=== PATIENT | female | born 1945 | race Caucasian/White ===

== ENCOUNTER → 2017-02-25 | Outpatient (CLI) | payer OTHER | LOC: BMCIMAGING 08:32 | PROVIDERS: ATTEND Nurse Practitioner Adult Health | DX: I65.23 Occlusion and stenosis of bilateral carotid arteries (principal); I10 Essential (primary) hypertension; Z87.891 Personal history of nicotine dependence ==

== ENCOUNTER 2017-03-08 06:21 | Observation (INO) | payer OTHER ==
[2017-03-08] MEDS ORDERED: DIAZEPAM 5 MG TAB PO ONE (06:26)
[2017-03-08] MEDS ORDERED: FAMOTIDINE 20 MG TAB PO ONE (06:26)
[2017-03-08] MEDS ORDERED: diphenhydrAMINE 25 MG CAP PO ONE ×2 (06:26→06:49)
[2017-03-08] MEDS ORDERED: ASPIRIN EC 325 MG TAB PO ONE (06:26)
[2017-03-08] MEDS ORDERED: NS 1,000 ML IV ONE (06:26)
--- NOTE | 2017-03-08 06:44 | CPEKG ---
Heart Rate: 53 RR Interval: 1132 P-R Interval: 212 QRSD Interval: 84 QT Interval: 464 QTC Interval: 436 P [place]: 104 QRS [place]: 42 T Wave [place]: 48 EKG Severity - ABNORMAL ECG - EKG Impression: SINUS RHYTHM EKG Impression: NONSPECIFIC T ABNORMALITIES, ANTERIOR LEADS Electronically Signed By: Uday Cain 08-Mar-2017 08:00:45
[2017-03-08] MEDS ORDERED: FAMOTIDINE 20 MG TAB ONE (06:49)
[2017-03-08] MEDS ORDERED: DIAZEPAM 5 MG TAB ONE (06:49)
[2017-03-08] MEDS ORDERED: ASPIRIN EC 81 MG TAB PO ONE (06:50)
[2017-03-08 06:57] LABS: % IMMATURE GRANULYOCYTES 0.3 % (0.0-1.1); ABSOLUTE IMMATURE GRANULOCYTES 0.02 10^3/uL (0.00-0.10); ADD DIFF? NO; ADD MORPH? NO; ADD SCAN? NO; ATYPICAL LYMPHOCYTE FLAG 0 (0-99); FRAGMENT RBC FLAG 0 (0-99); HEMATOCRIT 41.8 % (38.0-47.0); LEFT SHIFT FLG 0 (0-99); LIPEMIA HEMOLYSIS FLAG 80 (0-99); MEAN CELL HEMOGLOBIN 30.9 pg (27.9-34.1); MEAN CELL HEMOGLOBIN CONCENTR. 33.5 g/dL (32.4-36.7); MEAN CELL VOLUME 92.3 fL (81.5-99.8); MEAN PLATELET VOLUME 9.2 fL (8.7-11.7); PLATELET CLUMPS FLAG 20 (0-99); PLATELET COUNT 343 10^3/uL (150-400); RED BLOOD CELL COUNT 4.53 10^6/uL (4.18-5.33); RED CELL DISTRIBUTION WIDTH 14.1 % (11.5-15.2)
[2017-03-08 07:15] LABS: INR 0.99 (0.83-1.16)
[2017-03-08 07:20] LABS: ANION GAP 9 mEq/L (8-16); CARBON DIOXIDE 29 mEq/l (22-31); CHLORIDE 101 mEq/L (97-110); CHOLESTEROL 225 mg/dL (140-220); CHOLESTEROL/HDL RATIO 4.69 RATIO (1.00-4.44); CREATININE 0.6 mg/dL (0.6-1.0); GLOMERULAR FILTRATION RATE > 60; GLUCOSE 92 mg/dL (70-100); HIGH DENSITY LIPOPROTEIN 48 mg/dL (40-85); LDL/HDL RATIO 3.21 RATIO (1.00-3.22); LOW DENSITY LIPOPROTEIN 154 mg/dL (80-100); NON-HIGH DENSITY LIPOPROTEIN 177 mg/dL (90-129); POTASSIUM 3.9 mEq/L (3.5-5.2); SODIUM 139 mEq/L (134-144); TRIGLYCERIDE 115 mg/dL (35-135); VERY LOW DENSITY LIPOPROTEINS 23 mg/dL (8-25)
[2017-03-08] MEDS ORDERED: fentaNYL 100 MCG/2 ML INJ ONE (07:39)
[2017-03-08] MEDS ORDERED: LIDOCAINE 1% 300 MG/30 ML SDV ONE (07:39)
[2017-03-08] MEDS ORDERED: MIDAZOLAM 2 MG/2 ML VIAL ONE (07:40)
[2017-03-08] MEDS ORDERED: IOPAMIDOL (ISOVUE-370) 150 ML BTL IV ONE (07:40)
[2017-03-08] MEDS ORDERED: HEPARIN 10,000 UNIT/10 ML MDV ONE (07:40)
[2017-03-08] MEDS ORDERED: VERAPAMIL 5 MG/2 ML VIAL ONE (07:40)
[2017-03-08] MEDS ORDERED: ATROPINE SULFATE 1 MG/10 ML SYR ONE (09:06)
[2017-03-08] MEDS ORDERED: ATROPINE SULFATE 1 MG/10 ML SYR IVP PRN (09:10)
[2017-03-08] MEDS ORDERED: NITROGLYCERIN 0.4 MG BTL SL PRN (09:10)
[2017-03-08] MEDS ORDERED: ONDANSETRON 4 MG/2 ML VIAL IVP PRN (09:10)
--- NOTE | 2017-03-08 09:14 | PDDXCAT ---
Diagnostic Cath Note - . Date: 03/08/17 Orthotic Finish Grinding Technician: Avery Indication: High-risk criteria on noninvasive testing (choose option below) High-risk criteria on non-invasive testing: large, fixed perfusion defect w LV dilatation or increased lung uptake - Procedure Access: right groin Procedure: left heart catheterization, coronary angiography - Materials Left Heart Cath size: 6F Left Heart Cath materials: standard multipack (JL4, JR4, pigtail) - Findings-Left Heart Catheterization LM: Unobstructed LAD: 100% occluded after small diagonal LCX: 75-80% stenosis of the proximal circumflex RCA: Dominant vessel providing right to left collaterals of the LAD with diffuse 75% stenosis EDP: 15 mm of mercury LVEF: 65% Wall motion: Normal Complications: None Estimated blood loss: <50ml Closure method: Angioseal Assessment: 1. Severe [place] three-vessel coronary artery disease with 100% occlusion of the left anterior descending coronary artery. 2. Left ventricular systolic function is normal with normal filling pressures. Plan: Options include coronary artery bypass grafting versus PCI and stenting of the proximal circumflex and right coronary artery guided by FFR. Discussed with Dr. Kennedy. Will plan for cardiothoracic surgery consultation. Patient Problems: Problems Problem Status Onset Coronary arteriosclerosis Acute
[2017-03-08] MEDS ORDERED: LORazepam 2 MG/ML INJ IVP PRN (13:30)
[2017-03-08] MEDS ORDERED: TEMAZEPAM 15 MG CAP PO PRN (13:30)
[2017-03-08] MEDS ORDERED: PRASUGREL HCL 10 MG TAB PO ONE (13:30)
[2017-03-08] MEDS ORDERED: PRASUGREL HCL 10 MG TAB ONE (13:34)
--- NOTE | 2017-03-08 13:36 | PDCTREPORT ---
Cardiothoracic Procedure Rpt Cardiothoracic Procedure Report: Procedure: Direct stenting of the proximal circumflex artery. Direct stenting of the right coronary artery. Indications: Highly abnormal nuclear stress test in the setting of need for bilateral endarterectomy with occluded LAD fed by collaterals from the right and circumflex. Surgical consultation was obtained. Patient was turned down for 3 vessel coronary artery bypass grafting at this time. Will plan for PCI and stenting of the circumflex and right coronary artery to allow for safe carotid endarterectomy surgery for bilateral 99% stenoses. After reviewing diagnostic angiograms elected to proceed with PCI. Patient was anticoagulated with Angiomax. 7 [place] sheath was inserted in the left femoral artery. Using a 0.01 far luge wire the circumflex artery was entered. The proximal vessel was stented with a 2.75 by 16 mm synergy. Repeat orthogonal angiograms revealed worsening of the proximal stenosis. A 2.75 x 8 mm stent was placed proximally. It was post dilated with a 3 mm balloon. Our attention then was turned to the right coronary artery. Using a 7 [place] JR4 catheter the right coronary selectively intubated. 0.014 luge wire was placed distally. 4.0 x 38 mm synergy stent was placed distally. It was deployed using a single inflation. A 2nd 4.0 x 32 mm was overlapped and brought to the proximal segment and deployed using a single inflation. In the posterolateral branch 90 % stenosis was noted. 2.5 x 12 mm synergy stent was placed in the posterolateral branch and deployed using a single inflation. The right coronary stents were post dilated with a 4 mm noncompliant balloon. Repeat angiogram showed NORMA grade 3 flow. Final diagnosis: Successful revascularization with PCI stenting of the proximal circ and right coronary artery. Patient be continued on dual antiplatelet therapy for 30 days. That point patient be considered for endarterectomy under the care of Dr. Kennedy. Case was discussed with Dr. Garcia and Dr. Kennedy both before and after PCI. Patient Problems: Problems Problem Status Onset Coronary arteriosclerosis Acute
--- NOTE | 2017-03-08 14:07 | CPEKG ---
Heart Rate: 44 RR Interval: 1364 P-R Interval: 128 QRSD Interval: 74 QT Interval: 488 QTC Interval: 418 P [place]: 78 QRS [place]: 45 T Wave [place]: 54 EKG Severity - BORDERLINE ECG - EKG Impression: SINUS BRADYCARDIA EKG Impression: BORDERLINE T ABNORMALITIES, ANTERIOR LEADS Electronically Signed By: Uday Cain 08-Mar-2017 14:18:21
[2017-03-08] MEDS ORDERED: NICOTINE LOZENGE SL PRN ×2 (16:13→16:15)
[2017-03-09 04:38] LABS: % IMMATURE GRANULYOCYTES 0.4 % (0.0-1.1); ABSOLUTE IMMATURE GRANULOCYTES 0.04 10^3/uL (0.00-0.10); ADD DIFF? NO; ADD MORPH? NO; ADD SCAN? NO; ATYPICAL LYMPHOCYTE FLAG 0 (0-99); FRAGMENT RBC FLAG 0 (0-99); HEMATOCRIT 35.5 % (38.0-47.0); HEMOGLOBIN 12.1 g/dL (12.6-16.3); LEFT SHIFT FLG 0 (0-99); LIPEMIA HEMOLYSIS FLAG 90 (0-99); MEAN CELL HEMOGLOBIN 30.9 pg (27.9-34.1); MEAN CELL HEMOGLOBIN CONCENTR. 34.1 g/dL (32.4-36.7); MEAN CELL VOLUME 90.8 fL (81.5-99.8); MEAN PLATELET VOLUME 9.9 fL (8.7-11.7); PLATELET CLUMPS FLAG 0 (0-99); PLATELET COUNT 297 10^3/uL (150-400); RED BLOOD CELL COUNT 3.91 10^6/uL (4.18-5.33); RED CELL DISTRIBUTION WIDTH 14.1 % (11.5-15.2)
[2017-03-09 04:45] LABS: ALBUMIN 3.6 g/dL (3.5-5.0); ANION GAP 8 mEq/L (8-16); ASPARTATE AMINOTRANSFERASE 19 IU/L (14-46); BILIRUBIN,TOTAL 0.5 mg/dL (0.1-1.4); CALCIUM 9.2 mg/dL (8.5-10.4); CARBON DIOXIDE 24 mEq/l (22-31); CHLORIDE 106 mEq/L (97-110); CREATININE 0.6 mg/dL (0.6-1.0); GLOMERULAR FILTRATION RATE > 60; GLUCOSE 81 mg/dL (70-100); LACTATE DEHYDROGENASE 445 IU/L (313-618); MAGNESIUM 1.8 mg/dL (1.6-2.3); POTASSIUM 3.8 mEq/L (3.5-5.2); SODIUM 138 mEq/L (134-144)
--- NOTE | 2017-03-09 06:11 | CPEKG ---
Heart Rate: 75 RR Interval: 800 P-R Interval: 176 QRSD Interval: 78 QT Interval: 408 QTC Interval: 456 P [place]: 88 QRS [place]: 69 T Wave [place]: 75 EKG Severity - ABNORMAL ECG - EKG Impression: SINUS RHYTHM EKG Impression: NONSPECIFIC T ABNORMALITIES, ANTERIOR LEADS Electronically Signed By: Uday Cain 09-Mar-2017 08:59:03
[2017-03-09] MEDS ORDERED: PRASUGREL HCL 10 MG TAB PO SCH (09:00)
[2017-03-09] MEDS ORDERED: ASPIRIN EC 325 MG TAB PO SCH (09:00)
[2017-03-09] MEDS ORDERED: METOPROLOL SUCCINATE XR 100 MG TAB PO SCH (10:00)
[2017-03-09 10:50] VITALS: BP 101/50; PULSE 69; RESP 20; TEMP 98; O2SAT 96
--- NOTE | 2017-03-09 14:15 | GDS ---
[f rep st] DISCHARGE SUMMARY ADMISSION DIAGNOSES: 1. Abnormal nuclear study. 2. Paroxysmal atrial fibrillation. 3. Hyperlipidemia. 4. Bilateral carotid artery disease. 5. Essential hypertension. DISCHARGE DIAGNOSES: 1. Coronary artery disease, status post percutaneous coronary intervention of circumflex and right coronary artery and posterior lateral artery, with AARON implantation. 2. Paroxysmal atrial fibrillation. 3. Hyperlipidemia. 4. Bilateral carotid artery disease. 5. Essential hypertension. PROCEDURES: Done during hospitalization: 1. Electrocardiogram. 2. Diagnostic heart catheterization, left heart catheterization. 3. Percutaneous coronary intervention of the circumflex with a 2.75 x 16, and a 2.75 x 8 Synergy AARON implantation. 4. Percutaneous coronary intervention of the RCA with a 4.0 x 38, and a 4.0 x 32 Synergy AARON implantation. 5. Percutaneous coronary intervention of the posterior lateral artery with a 2.5 x 12 Synergy AARON implantation. BRIEF HISTORY: Please see history and physical. The patient is a 72-year-old female. Her primary enterprise systems engineer is Dr. Kennedy. She had been seen by him in preparation for known severe bilateral carotid artery disease, with a plan for carotid endarterectomy. As part of her cardiac workup she did undergo stress testing on March 06, 2017, which showed positive ECG changes with 2.[address]-segment depression, and that persisted throughout the recovery phase. MPI study did show a moderate size area of ischemia in the anterior and anterior septal brannon. At that time it was felt that she should be further evaluated for cardiac ischemia before undergoing surgery, and was scheduled for a diagnostic heart catheterization. Patient was admitted through the CVC, prepped for procedure, and taken to the cardiac catheterization lab. There, Dr. Varela performed a diagnostic left heart catheterization with axis point of the right groin. It was found that her left main was unobstructed, her LAD was 100% occluded after a small diagonal branch. Her circumflex had a 75% to 80% stenosis in the proximal circ, her RCA was a dominant vessel,right to left collateralization to the LAD with diffuse 75% stenosis. Her ejection fraction was estimated at 65%, EDP was 15 mmHg, and she had normal wall motion. At that point she was taken off the table. Dr. Varela discussed the findings with her primary enterprise systems engineer, Dr. Kennedy, and Dr. Garcia of cardiovascular surgery. She was felt to be a poor candidate for surgery. She was taken back to the cardiac catheterization, and at this time a left femoral artery access approach was done, where Dr. Varela successfully stented the circumflex with a 2.75 x 16 and a 2.75 x 8 Synergy AARON stent. At that point he transitioned over to intervention on the right RCA and ELVIA, in which he implanted a 4.0 x 38 distal and 4.0 x 32 proximal Synergy AARON in the main right coronary artery, and then he PCI'd with AARON implantation into the ELVIA with a 2.5 x 12 Synergy stent. No complications. The patient was taken back to the CVC, and ultimately to the telemetry floor for overnight observation. During the night the patient has been noted on continuous cardiac monitoring to be sinus rhythm, sinus alejandro, no malignant arrhythmias or pauses noted. Patient reports no chest pain or shortness of breath. Vital signs remained stable. PHYSICAL EXAMINATION: GENERAL APPEARANCE: A thin, elderly-looking female. She is alert and oriented to person, place, time, and situation, appears to be under no acute distress. VITAL SIGNS: Current vital signs are a blood pressure of 101/50, heart rate is 69 and sinus rhythm on the monitor, respirations are 20, saturating 96% on room air, temperature of 36.7 degrees Celsius. HEENT: Head is normocephalic. Lips and tongue are pink and moist with no signs of cyanosis. Conjunctivae pink. NECK: Trachea is midline, carotid bruits noted bilaterally. No JVD. RESPIRATORY: Lungs are clear but diminished in bases bilateral. No rhonchi, rales or wheezes. No accessory muscle use, no intercostal muscle retractions noted. CARDIAC: Regular rate, regular rhythm, S1 and S2, a 1/6 to 2/6 systolic murmur noted along the left sternal border. No rubs or gallops are noted. ABDOMEN: Soft, nontender, bowel sounds x4 quadrants, no organomegaly. No palpable masses. SKIN: [place], warm, dry, no cyanosis, no clubbing, no peripheral edema. VASCULAR: With +1 radial bilateral, +1 posterior tibial pulses bilateral. Groin sites, catheter insertion sites bilateral, each site with no redness, swelling, drainage, ecchymosis, or hematoma. No auscultated bruit noted over either site. LABORATORY STUDIES: Laboratory studies drawn today show a WBC of 10.50, hemoglobin of 12.1, hematocrit of 35.5, platelet count of 297. On admission INR was 0.99. Sodium today was 138, potassium 3.8, chloride 106, CO2 of 24, BUN 12, creatinine 0.6, glucose 81, calcium 9.2, phosphorus 3.5, magnesium 1.8, total bilirubin 0.5, AST 19, albumin 3.6. STUDIES: Diagnostic heart catheterization as mentioned above. Interventional heart catheterization as mentioned above. A.M. electrocardiogram shows sinus rhythm, with nonspecific T-wave abnormalities in anterior leads. DISCHARGE DISPOSITION: Patient will be discharged home in stable condition. She is under activity restrictions of not lifting more than 10 pounds for the next week, and no strenuous activity for the next 2 weeks. DISCHARGE MEDICATIONS: Please see discharge medication reconciliation sheet. Note that patient has been started on dual anti-platelet therapy of aspirin at 325 mg p.o. daily, and Effient 10 mg p.o. daily. She has been resumed on her home dose of pravastatin. DISCHARGE INSTRUCTIONS: Post percutaneous coronary intervention discharge instructions went over with the patient, including monitoring for signs of infection, bleeding precautions, activity restrictions, and the importance of medication compliance, especially dual anti-platelet therapy with recent 5 stent implantation. The patient verbalizes understanding. Dr. Kennedy's office will call the patient on Saturday, to be scheduled for a followup visit. Plan is patient will need to be on dual anti-platelet therapies in 30 days recovery before undergoing carotid endarterectomy, potentially longer. As for her history of paroxysmal atrial fibrillation, she has had no arrhythmias run in the hospital, she has been started on dual anti-platelet therapy, we will let Dr. Kennedy's office start full anticoagulation as an outpatient. At the time of discharge patient verbalizes understanding of all instructions, and has no questions or concerns. She has been told that if any problems or concerns post discharge she is to either notify our office, notify Dr. Kennedy's office, or return to the hospital. Total time spent on discharge greater than 30 minutes. /[id number]/MODL MTDD
[2017-03-09] MEDS ORDERED: PRAVASTATIN SODIUM 10 MG TAB PO SCH (21:00)
== END 2017-03-09 13:49 | disposition home or self-care (01) ==
LOC: FCATH 06:21 → F2W 12:44
PROVIDERS: ADMIT Internal Medicine Interventional Cardiology; ATTEND Internal Medicine Interventional Cardiology
PROC: B2111ZZ Fluoroscopy of Multiple Coronary Arteries using Low Osmolar Contrast (ICD-10-PCS; principal; 2017-03-08)
PROC: B2151ZZ Fluoroscopy of Left Heart using Low Osmolar Contrast (ICD-10-PCS; principal; 2017-03-08)
PROC: 4A023N7 Measurement of Cardiac Sampling and Pressure, Left Heart, Percutaneous Approach (ICD-10-PCS; principal; 2017-03-08)
PROC: 027235Z Dilation of Coronary Artery, Three Arteries with Two Drug-eluting Intraluminal Devices, Percutaneous Approach (ICD-10-PCS; principal; 2017-03-08)
DX: R94.39 Abnormal result of other cardiovascular function study (principal); I25.10 Atherosclerotic heart disease of native coronary artery without angina pectoris; I65.23 Occlusion and stenosis of bilateral carotid arteries; I25.82 Chronic total occlusion of coronary artery; I48.0 Paroxysmal atrial fibrillation; E78.5 Hyperlipidemia, unspecified; I10 Essential (primary) hypertension; G47.33 Obstructive sleep apnea (adult) (pediatric); J44.9 Chronic obstructive pulmonary disease, unspecified; E55.9 Vitamin D deficiency, unspecified; F17.210 Nicotine dependence, cigarettes, uncomplicated; Z85.3 Personal history of malignant neoplasm of breast; Z96.651 Presence of right artificial knee joint; Z90.13 Acquired absence of bilateral breasts and nipples
CPT/HCPCS: 93005; 93458; C1725; C1760; C1769; C1874; C1887; C9600; J0461; J1644; J2250; J3010; Q9967

== ENCOUNTER → 2017-03-08 | Outpatient (CLI) | payer OTHER ==
[~2017-03-08] MED LIST: BIVALIRUDIN 250 MG/5 ML VIAL IV ONE; IOPAMIDOL (ISOVUE-370) 150 ML BTL IV ONE; LIDOCAINE 1% 300 MG/30 ML SDV ONE; MIDAZOLAM 2 MG/2 ML VIAL ONE; NITROGLYCERIN 1,500 MCG/15 ML VIAL MISC ONE; fentaNYL 100 MCG/2 ML INJ ONE
== END ==
LOC: FIMAGING 10:15
PROVIDERS: ATTEND Surgery
DX: I65.29 Occlusion and stenosis of unspecified carotid artery (principal); Z53.9 Procedure and treatment not carried out, unspecified reason
CPT/HCPCS: J0583; J1644; J2250; J3010; Q9967

== ENCOUNTER → 2017-03-29 | Outpatient (CLI) | payer OTHER | LOC: FIMAGING 09:48 | PROVIDERS: ATTEND Surgery | DX: I65.23 Occlusion and stenosis of bilateral carotid arteries (principal); I25.10 Atherosclerotic heart disease of native coronary artery without angina pectoris ==

== ENCOUNTER 2017-06-11 09:56 | Inpatient (IN) | payer OTHER ==
--- NOTE | 2017-06-11 09:50 | PDHPUP ---
History & Physical Update H&P update statement: This history and physical update is based on an assessment of the patient which was completed after admission or registration (within 24 hours), but prior to the surgery/procedure. H&P update: H&P reviewed & patient examined, no change in patient's condition since H&P completed
[2017-06-11] MEDS ORDERED: BUPIVACAINE/EPI 0.5% 30 ML SDV ONE (10:46)
[2017-06-11] MEDS ORDERED: THROMBIN (BOVINE) 5,000 UNIT VIAL TP ONE (10:47)
[2017-06-11] MEDS ORDERED: LIDOCAINE 1% 2 ML INJ ONE (11:13)
--- NOTE | 2017-06-11 11:18 | PDANEPAE ---
ANE History of Present Illness here for R CEA ANE Past Medical History - Cardiovascular History Hx Hypertension: Yes Hx Arrhythmias: Yes Hx Chest Pain: No Hx Coronary Artery / Peripheral Vascular Disease: Yes Hx CHF / Valvular Disease: No Hx Palpitations: No Cardiovascular History Comment: A-FIB - Pulmonary History Hx COPD: No Hx Asthma/Reactive Airway Disease: No Hx Recent Upper Respiratory Infection: No Hx Oxygen in Use at Home: No Hx Sleep Apnea: Yes Sleep Apnea Screening Result - Last Documented: Positive Pulmonary History Comment: [facility]DRO HAS C-PAP. INSTRUCTED TO BRING DOS - Neurologic History Hx Cerebrovascular Accident: No Hx Seizures: No Hx Dementia: No - Endocrine History Hx Diabetes: No Obesity: no - Renal History Hx Renal Disorders: No - Liver History Hx Hepatic Disorders: No - Neurological & Psychiatric Hx Hx Neurological and Psychiatric Disorders: No - Cancer History Hx Cancer: Yes Cancer History Comment: BREAST - GI History GERD: mild Hx Gastrointestinal Disorders: No - Chronic Pain History Chronic Pain: No - Surgical History Prior Surgeries: STENTS X5 03/2017. RT TOTAL KNEE 2007. YANE CATARACTS. YANE MASTECTOMY. REMVL OVARY ANE Review of Systems Review of systems is: negative - Exercise capacity Exercise capacity: >=4 METS METS (RN): 4 METS ANE Patient History - Allergies Allergies/Adverse Reactions: Sulfa (Sulfonamide Antibiotics) Allergy (Verified 03/08/17 12:46) - Home Medications Home medications: home medication list seen and reviewed Home Medications: C/E/Zn/Cu/OM3/DHA/EPA/LUT/ZEAX [Preservision Areds 2 Softgel] 1 each PO DAILY [Last Taken 03/08/17] Hydrochlorothiazide [HCTZ (*)] 12.5 mg PO DAILY 03/08/17 [Last Taken 03/07/17] Metoprolol Succinate Xr [Toprol Xl 100 mg (*)] 100 mg PO DAILY 03/08/17 [Last Taken 03/08/17] Pravastatin Sodium [Pravachol] 10 mg PO HS 03/08/17 [Last Taken 03/07/17] Aspirin EC [Aspirin EC 81 mg (*)] 81 mg PO DAILY 05/20/17 [Last Taken Unknown] - NPO status NPO Status: no food or drink >8 hours - Anes Hx Anes Hx: no prior problems - Smoking Hx Smoking Status: Former smoker ANE Labs/Vital Signs - Vital Signs Height: 160.02 cm Weight: 54.431 kg ANE Physical Exam - Airway Neck exam: FROM Mallampati Score: Class 1 Mouth exam: normal dental/mouth exam - Pulmonary Pulmonary: no respiratory distress - Cardiovascular Cardiovascular: regular rate and rhythym - ASA Status ASA Status: III ANE Anesthesia Plan Anesthesia Plan: general endotracheal anesthesia Lines/Monitors: arterial line
[2017-06-11] MEDS ORDERED: MIDAZOLAM 2 MG/2 ML VIAL ONE (11:25)
[2017-06-11] MEDS ORDERED: PROPOFOL/EMULSION 500 MG/50 ML BOTTLE IV ONE (11:32)
[2017-06-11] MEDS ORDERED: ROCURONIUM 100 MG/10 ML VIAL ONE (11:39)
[2017-06-11] MEDS ORDERED: fentaNYL 100 MCG/2 ML INJ ONE (11:42)
[2017-06-11] MEDS ORDERED: HYDROmorphONE/DILAUDID 1 MG/ML SYR IVP PRN ×2 (13:02→13:48)
[2017-06-11] MEDS ORDERED: NALOXONE HCL 0.4 MG/ML INJ IVP PRN (13:02)
[2017-06-11] MEDS ORDERED: ONDANSETRON 4 MG/2 ML VIAL IVP PRN ×2 (13:02→13:48)
[2017-06-11] MEDS ORDERED: ALBUTEROL 3 ML DEYVIAL IH PRN (13:02)
[2017-06-11] MEDS ORDERED: PROMETHAZINE HCL 25 MG/ML INJ IVP PRN (13:02)
[2017-06-11] MEDS ORDERED: fentaNYL 100 MCG/2 ML INJ IVP PRN (13:02)
[2017-06-11] MEDS ORDERED: LABETALOL HCL 50 MG/10 ML SYR IVP PRN (13:02)
[2017-06-11] MEDS ORDERED: DEXAMETHASONE 4 MG/ML VIAL IVP PRN (13:02)
[2017-06-11] MEDS ORDERED: MIDAZOLAM 2 MG/2 ML VIAL IVP ONE (13:02)
[2017-06-11] MEDS ORDERED: ZOLPIDEM TARTRATE 5 MG TAB PO PRN (13:48)
[2017-06-11] MEDS ORDERED: NITROGLYCERIN 0.4 MG BTL SL PRN (13:49)
--- NOTE | 2017-06-11 13:51 | POSTOPPROG ---
Post Op Note Date of Operation: 06/11/17 Surgeon: Selvin Fields Chemist: Edinson Stanford Anesthesiologist: Daniel Newman Anesthesia: GET(General Endotracheal) Pre-op Diagnosis: Right carotid stenosis Post-op Diagnosis: Same Procedure: Right CEA with Dacron Patch Angioplasty Findings: Tapering plaque Inf/Abcess present in the surg proc area at time of surgery?: No EBL: Minimal Complications: No immediate Specimen(s): plaque
--- NOTE | 2017-06-11 14:03 | POSTANESTH ---
Post Anesthetic Evaluation Cardiovascular Status: Normal, Stable Respiratory Status: Normal, Stable Level of Consciousness/Mental Status: Can Participate in Eval Pain Control: Adequate, Prn Tx Ordered Nausea/Vomiting Control: Adequate, Prn Tx Ordered Complications Possibly Related to Anesthesia: None Noted
[2017-06-11] MEDS: HYDROCODONE/APAP 5/325 TAB PO PRN ×2 (16:54→19:41)
--- NOTE | 2017-06-11 17:57 | SOAPPROG ---
SOAP Progress Note Assessment/Plan: Assessment:no complaints. min pain. no swallowing or breathing concerns. avss. neuro normal. approp right neck ecchymosis (on dual antiplt therapy). hematoma superficial. trachea midline. voice normal. doing very well overall. expected postop ecchymosis - cont supportive care. no expansion or airway compromise. Plan: 06/11/17 17:55 Objective: Vital Signs Temp Pulse Resp BP Pulse Ox 36.6 C 50 L 12 102/51 L 95 06/11/17 17:35 06/11/17 17:35 06/11/17 17:35 06/11/17 17:35 06/11/17 17:35 06/10/17 06/11/17 06/12/17 05:59 05:59 05:59 Intake Total 750 Output Total 15 Balance 735 ICD10 Worksheet Patient Problems: Problems Problem Status Onset Coronary arteriosclerosis Acute
[2017-06-11] MEDS ORDERED: PRAVASTATIN SODIUM 10 MG TAB PO SCH (21:00)
--- NOTE | 2017-06-11 21:23 | GOP ---
[f rep st] OPERATIVE REPORT DATE OF OPERATION: 06/11/2017 SURGEON: Selvin Fields MD CAP BLOCKER: Edinson Stanford MD. ANESTHESIA: General. ANESTHESIOLOGIST: Dr. Newman. PREOPERATIVE DIAGNOSIS: Bilateral carotid stenosis. POSTOPERATIVE DIAGNOSIS: Bilateral carotid stenosis. PROCEDURE PERFORMED: Right carotid endarterectomy with Dacron patch angioplasty. FINDINGS: See below. INDICATIONS: 72-year-old female with bilateral carotid stenosis, right much greater than left. She underwent preoperative PTCA with stent placement. She has been maintained on aspirin and Effient. She has noted symptomatic improvement in her shortness of breath. She is undergoing a right carotid endarterectomy for her critical right stenosis at this time. Risks and benefits were explained of bleeding, infection, recurrent stenosis, nerve injury , stroke as well as untoward cardiovascular complications. All questions were answered. She desires to proceed. DESCRIPTION OF PROCEDURE: General anesthesia was induced. The right neck was infiltrated with 1% lidocaine and 0.5% Marcaine along the transverse neck incision as well as along the anterior and posterior border of the sternocleidomastoid muscles. An oblique incision was created within the skin lines over the carotid bifurcation, which was identified using ultrasonography. The anterior border of the sternocleidomastoid muscle was dissected out. The facial vein was identified and ligated between clamps and ties. The carotid artery was dissected out including the common, internal, external and superior thyroid artery branches. A heparin bolus was administered. Occluding clamps were applied. The proximal common carotid artery was noted to be soft, as was the internal carotid artery beyond the plaque. The external carotid artery was also without significant calcification. A longitudinal arteriotomy was created through the internal carotid artery. Using Man scissors, this was taken up into the proximal portion of the internal carotid artery. Using a [place] elevator, the nearly occlusive plaque was transected proximally and retrieved from the internal and external carotid arteries. There was a nice smooth tapering endpoint that was easily attained within the proximal internal carotid artery which did not require tacking sutures. The arteries were forebled and backbled, showing good inflow. Loose fronds were all individually retrieved. A Dacron patch was cut to size and run through the carotid arteriotomy with a competing 6-0 Prolene suture. The arteries were all forebled and backbled again. The occluding clamps were removed from the external as well as common carotid arteries prior to releasing the blood flow to the internal carotid artery. Satisfactory hemostasis was assured throughout the dissection planes. The hypoglossal nerve was noted to be intact, as was the vagus nerve. The ansa cervicalis was also left intact throughout the dissection. The neck was closed in layers with absorbable sutures followed by Dermabond. The patient was extubated in the operating room, moving all 4 extremities well, and taken to recovery in good condition. /[id number]/MODL MTDD
[2017-06-12 05:50] VITALS: O2SAT 93
[2017-06-12] MEDS: HYDROCODONE/APAP 5/325 TAB PO PRN (06:33)
--- NOTE | 2017-06-12 07:52 | SOAPPROG ---
SOAP Progress Note Assessment/Plan: Assessment:no complaints. min neck pain. no swallowing or breathing concerns. bp 90-100. neuro normal. approp right neck ecchymosis unchanged - mostly superficial. trachea midline. voice normal. heart regular. lungs clear. pod #1 doing very well overall. expected postop ecchymosis - cont supportive care - ice/heat prn. no expansion or airway compromise. home today. f/u 7-10 days Plan: 06/11/17 17:55 06/12/17 07:51 Objective: Vital Signs Temp Pulse Resp BP Pulse Ox 36.6 C 74 16 114/53 L 93 06/12/17 04:00 06/12/17 04:00 06/12/17 04:00 06/12/17 04:00 06/12/17 04:00 06/11/17 06/12/17 06/13/17 05:59 05:59 05:59 Intake Total 1050 Output Total 15 Balance 1035 ICD10 Worksheet Patient Problems: Problems Problem Status Onset Coronary arteriosclerosis Acute
[2017-06-12 08:56] VITALS: BP 93/50; PULSE 60; RESP 10; TEMP 97.9
[2017-06-12] MEDS ORDERED: PRESERVISION AREDS2 FORMULA EYE VIT 1 EACH PO SCH (09:00)
[2017-06-12] MEDS ORDERED: HYDROCHLOROTHIAZIDE 12.5 MG CAP PO SCH (09:00)
[2017-06-12] MEDS ORDERED: METOPROLOL SUCCINATE XR 100 MG TAB PO SCH (09:00)
[2017-06-12] MEDS ORDERED: ASPIRIN EC 81 MG TAB PO SCH (09:00)
[2017-06-12] MEDS ORDERED: PRASUGREL HCL 10 MG TAB PO SCH (09:00)
--- NOTE | 2017-06-12 09:30 | GDS ---
[f rep st] DISCHARGE SUMMARY REASON FOR ADMISSION: Critical right carotid artery stenosis. HOSPITAL COURSE: 72-year-old female with critical right carotid artery stenosis. She underwent an uncomplicated right carotid endarterectomy with Dacron patch angioplasty. She had a benign postoperative course. She was discharged home the following morning in good condition, tolerating a regular diet with adequate pain control with oral analgesics. She will be seen in followup with Dr. Fields in 7-10 days. She was to resume all pre-hospital medications. Full activity instructions were explained prior to leaving. She had prescriptions for [place] as needed for discomfort. /[id number]/MODL MTDD
--- NOTE | 2017-06-16 17:05 | ASDISCHSUM ---
Discharge Information Plan Status:Home with Home Health Medically Cleared to Leave:06/12/2017 Discharge Date:06/12/2017 09:43 AM CM D/C Disposition:Home, Routine, Self-Care ADT D/C Disposition:Home, Routine, Self-Care Projected Discharge Date:06/12/2017 12:00 AM Transportation at D/C: Discharge Delay Reason: Follow-Up Date:06/12/2017 12:00 AM Discharge Slot: Final Diagnosis: Placement Information Patient Contact Information Contact Name:REHAN Relationship:Sister Address: Work Phone: City: [facility] Phone: State/[place] Code: Email: Financial Information Financial Class:MADELINE Primary Plan Desc:MEDICARE INPATIENT Primary Plan Number:[id number] Secondary Plan Desc:[employer] Secondary Plan Number:[id number] Assessment Information Intervention Information
== END 2017-06-12 09:43 | disposition home or self-care (01) | DRG 39 ==
LOC: F2W 10:18 → F3E 14:57
PROVIDERS: ADMIT Surgery; ATTEND Surgery
PROC: 03CK0ZZ Extirpation of Matter from Right Internal Carotid Artery, Open Approach (ICD-10-PCS; principal; 2017-06-11 11:30)
DX: I65.23 Occlusion and stenosis of bilateral carotid arteries (principal); I10 Essential (primary) hypertension; I25.10 Atherosclerotic heart disease of native coronary artery without angina pectoris; Z95.5 Presence of coronary angioplasty implant and graft; Z79.02 Long term (current) use of antithrombotics/antiplatelets; Z79.82 Long term (current) use of aspirin; Z85.3 Personal history of malignant neoplasm of breast; Z90.13 Acquired absence of bilateral breasts and nipples; Z96.651 Presence of right artificial knee joint; G47.33 Obstructive sleep apnea (adult) (pediatric)
CPT/HCPCS: C1768; J1170; J1644; J2250; J2704; J3010

== ENCOUNTER 2017-12-20 11:03 | Inpatient (IN) | payer OTHER ==
[2017-12-20] MEDS ORDERED: LIDOCAINE 1% 2 ML INJ ONE (12:20)
[2017-12-20] MEDS ORDERED: LIDOCAINE 1% 2 ML INJ ID PRN (12:24)
[2017-12-20] MEDS ORDERED: LR 1,000 ML IV ONE (12:24)
[2017-12-20] MEDS ORDERED: BUPIVACAINE/EPI 0.5% 30 ML SDV ONE (12:53)
[2017-12-20] MEDS ORDERED: THROMBIN (BOVINE) 5,000 UNIT VIAL TP ONE (12:54)
[2017-12-20] MEDS ORDERED: PROPOFOL/EMULSION 500 MG/50 ML BOTTLE IV ONE (14:23)
[2017-12-20] MEDS ORDERED: ACETAMINOPHEN 325 MG TAB PO PRN (14:24)
[2017-12-20] MEDS ORDERED: fentaNYL 100 MCG/2 ML INJ ONE (14:24)
[2017-12-20] MEDS ORDERED: ONDANSETRON 4 MG/2 ML VIAL IVP PRN ×2 (14:24→15:12)
[2017-12-20] MEDS ORDERED: HYDROCODONE/APAP 5/325 TAB PO PRN (14:24)
[2017-12-20] MEDS ORDERED: NITROGLYCERIN 0.4 MG BTL SL PRN (14:26)
[2017-12-20] MEDS ORDERED: SURGIFLO MATRIX KIT WITH THROMBIN 8ml TP ONE (15:05)
[2017-12-20] MEDS ORDERED: fentaNYL 100 MCG/2 ML INJ IVP PRN (15:12)
[2017-12-20] MEDS ORDERED: DEXAMETHASONE 4 MG/ML VIAL IVP PRN (15:12)
[2017-12-20] MEDS ORDERED: LABETALOL HCL 5 MG/ML 20 ML MDV IVP PRN (15:12)
[2017-12-20] MEDS ORDERED: PROMETHAZINE HCL 25 MG/ML INJ IVP PRN (15:12)
[2017-12-20] MEDS ORDERED: NALOXONE HCL 0.4 MG/ML INJ IVP PRN (15:12)
--- NOTE | 2017-12-20 15:12 | PDANEPAE ---
ANE History of Present Illness here for L CEA ANE Past Medical History - Cardiovascular History Hx Hypertension: Yes Hx Arrhythmias: Yes Hx Chest Pain: No Hx Coronary Artery / Peripheral Vascular Disease: Yes Hx CHF / Valvular Disease: No Hx Palpitations: No Cardiovascular History Comment: A-FIB - Pulmonary History Hx COPD: No Hx Asthma/Reactive Airway Disease: No Hx Recent Upper Respiratory Infection: No Hx Oxygen in Use at Home: Yes O2 in Use at Home (L/minute): 2L at noc Hx Sleep Apnea: Yes Sleep Apnea Screening Result - Last Documented: Positive Pulmonary History Comment: SANDRO HAS C-PAP. INSTRUCTED TO BRING DOS - Neurologic History Hx Cerebrovascular Accident: No Hx Seizures: No Hx Dementia: No - Endocrine History Hx Diabetes: No - Renal History Hx Renal Disorders: No - Liver History Hx Hepatic Disorders: No - Neurological & Psychiatric Hx Hx Neurological and Psychiatric Disorders: No - Cancer History Hx Cancer: Yes Cancer History Comment: BREAST - Congenital Disorder History Hx Congenital Disorders: No - GI History Hx Gastrointestinal Disorders: No - Other Health History Other Health History: bruises easily - Chronic Pain History Chronic Pain: No - Surgical History Prior Surgeries: STENTS X5 03/2017. RT TOTAL KNEE 2007. YANE CATARACTS. YANE MASTECTOMY. REMVL OVARY ANE Review of Systems Review of systems is: negative Review of Systems: - Exercise capacity Exercise capacity: >=4 METS METS (RN): 6 METS ANE Patient History - Allergies Allergies/Adverse Reactions: Sulfa (Sulfonamide Antibiotics) Allergy (Intermediate, Verified 12/18/17 14:13) Other-Enter Comments - Home Medications Home medications: home medication list seen and reviewed Home Medications: C/E/Zn/Cu/OM3/DHA/EPA/LUT/ZEAX [Preservision Areds 2 Softgel] 1 each PO DAILY [Last Taken 03/08/17] Hydrochlorothiazide [HCTZ (*)] 12.5 mg PO DAILY 03/08/17 [Last Taken 12/18/17] Metoprolol Succinate Xr [Toprol Xl 100 mg (*)] 100 mg PO DAILY 03/08/17 [Last Taken 12/20/17 07:30] Pravastatin Sodium [Pravachol] 10 mg PO HS 03/08/17 [Last Taken 12/19/17 22:00] Apixaban [Eliquis] 5 mg PO BID 12/18/17 [Last Taken 12/18/17] Herbals/Supplements -Info Only 1 ea PO DAILY 12/18/17 [Last Taken Unknown] - NPO status NPO Since - Liquids (Date): 12/19/17 NPO Since - Liquids (Time): 20:30 NPO Since - Solids (Date): 12/19/17 NPO Since - Solids (Time): 18:00 - Anes Hx Anes Hx: no prior problems - Smoking Hx Smoking Status: Former smoker - Family Anes Hx Family Hx Anesthesia Complications: none ANE Labs/Vital Signs - Vital Signs Vital Signs: reviewed preoperatively; see RN documention for details Blood Pressure: 136/63 Heart Rate: 55 Respiratory Rate: 95 O2 Sat (%): 95 Height: 161.29 cm Weight: 57.606 kg ANE Physical Exam - Airway Neck exam: FROM Mallampati Score: Class 1 - Pulmonary Pulmonary: no respiratory distress - Cardiovascular Cardiovascular: regular rate and rhythym - ASA Status ASA Status: III ANE Anesthesia Plan Anesthesia Plan: general endotracheal anesthesia Lines/Monitors: arterial line
[2017-12-20] MEDS ORDERED: HYDROmorphONE/DILAUDID 2 MG/ML INJ IVP PRN (15:14)
--- NOTE | 2017-12-20 16:45 | POSTOPPROG ---
Post Op Note Date of Operation: 12/20/17 Surgeon: Selvin Fields Medical Affairs Specialist: Edinson Stanford Anesthesiologist: Daniel Newman Anesthesia: GET(General Endotracheal) Pre-op Diagnosis: Left carotid stenosis Post-op Diagnosis: Same Procedure: Left CEA Findings: High grade cheesy plaque with smooth end point Inf/Abcess present in the surg proc area at time of surgery?: No EBL: Minimal Complications: no immediate Specimen(s): plaque
--- NOTE | 2017-12-20 17:41 | GOP ---
[f rep st] OPERATIVE REPORT DATE OF OPERATION: 12/20/2017 SURGEON: Selvin Fields MD COLLAR STARCHER: Edinson Stanford MD. ANESTHESIOLOGIST: Daniel Newman MD. PREOPERATIVE DIAGNOSIS: Left carotid stenosis. POSTOPERATIVE DIAGNOSIS: Left carotid stenosis. PROCEDURE PERFORMED: Left carotid endarterectomy with Dacron patch angioplasty. FINDINGS: INDICATIONS: A 72-year-old female with asymptomatic bilateral high-grade carotid stenosis. She unde rwent a prior right carotid endarterectomy. She is undergoing contralateral repair today. Risks and benefits were explained of bleeding, infection, stroke, nerve injury, recurrent stenosis, untoward c ardiovascular complications as well as others. All questions were answered. She desires to proceed. DESCRIPTION OF PROCEDURE: General anesthesia was induced. Intraoperative ultrasonography was utiliz ed to identify the carotid bifurcation, which was in a favorably low position. Local anesthetic was infiltrated along the skin lines as well as anterior border of the sternocleidomastoid, allowing for a superficial cervical plexus block. A transverse incision was created within skin lines. The platy sma muscle was divided. The anterior border of the sternocleidomastoid muscle was divided. A large facial vein branch was easily identified low in the neck. This was divided between clamps and ties a llowing for exposure of the carotid bifurcation. The common, external, internal, and superior thyroi d arteries were all encompassed with vessel loops. The vagus nerve was spared as was the hypoglossal nerve. The Ansa cervicalis was also out of the operative field. A heparin bolus was administered. A longitudinal arteriotomy was created from the common carotid artery up to the internal carotid dolly ry using a [place] elevator. The endarterectomy was completed. There was a nice smooth tapering endpo int within the internal carotid artery. The proximal endpoint was transected using scissors. Multip le posterior tacking sutures were placed upon the internal carotid artery posterior wall. A Dacron p atch was now brought to the field, cut to size and used for closure of the arteriotomy. This was don e with running 6-0 Prolene suture. Bleeding points were all controlled with interrupted 7-0 Prolene sutures. The arteries were forward-bled and back-bled, opening of flow through the external carotid artery prior to returning flow to the internal. Of note, there was excellent back-bleeding coming fr om the internal prior to final closure. Satisfactory hemostasis was assured. Surgiflo was placed up on the suture line. The neck was closed in layers with absorbable sutures followed by Dermabond. Th e patient was taken to recovery room, extubated, moving all 4 extremities, in good condition. /[id number]/MODL
--- NOTE | 2017-12-20 18:06 | PDMN ---
Medical Necessity Medical necessity: C/M review: est. > 2 MN LOS for eval and TX of left carotid stenosis requiring 12/20/2017 surgery - left carotid endarterectomy with Dacron patch angioplasty - Inpatient per Medicare guidelines per surgery postop report.
[2017-12-20] MEDS ORDERED: PRAVASTATIN SODIUM 10 MG TAB PO SCH (21:00)
[2017-12-20] MEDS: IBUPROFEN 600 MG TAB PO SCH (21:39)
[2017-12-21] MEDS: IBUPROFEN 600 MG TAB PO SCH (06:20)
[2017-12-21 07:31] VITALS: BP 101/54; PULSE 55; RESP 18; TEMP 98.3; O2SAT 94
--- NOTE | 2017-12-21 08:53 | GDS ---
[f rep st] DISCHARGE SUMMARY Date of admission 12/19/2017. Date of discharge 12/20/2017. Principal diagnosis internal carotid artery stenosis there are no complications of hospital stay Chief complaint This is a 72-year-old patient who presents with left internal carotid artery stenosis. Hospital course: The patient underwent left carotid endarterectomy yesterday. She has had no postsurgical neurologic deficits. She is back to her baseline cardiopulmonary status. She will be discharged home on her home medications with the exception of her Eliquis, which we will hold until Saturday. She will restart her Eliquis on Saturday. Other than that, the patient will follow up in the office in 1-2 weeks. She is to call with any concerns regarding her hospitalization or surgery, pain not controlled by medications, signs of neurologic deficits, swelling or bruising at the site of incision, which is more than normal. Verbal confirmation of understanding of issues to be concerned about prior to discharge. /[id number]/MODL MTDD
[2017-12-21] MEDS ORDERED: HYDROCHLOROTHIAZIDE 12.5 MG CAP PO SCH (09:00)
[2017-12-21] MEDS ORDERED: PRESERVISION AREDS2 FORMULA EYE VIT 1 EACH PO SCH (09:00)
[2017-12-21] MEDS ORDERED: METOPROLOL SUCCINATE XR 100 MG TAB PO SCH (09:00)
[2017-12-21] MEDS ORDERED: PRASUGREL HCL 10 MG TAB PO SCH (09:00)
--- NOTE | 2017-12-21 10:18 | ASMTCMCOM ---
CM Note CM Note Notes: Pt. d/c'ed independently today per bedside RN. Date Signed: 12/21/2017 10:17 AM Electronically Signed By:Katlyn Crespo LCSW
== END 2017-12-21 09:59 | disposition home or self-care (01) | DRG 39 ==
LOC: F3E 11:51
PROVIDERS: ADMIT Surgery; ATTEND Surgery
DX: I65.22 Occlusion and stenosis of left carotid artery (principal); I25.10 Atherosclerotic heart disease of native coronary artery without angina pectoris; I10 Essential (primary) hypertension; H35.3110 Nonexudative age-related macular degeneration, right eye, stage unspecified; H35.3220 Exudative age-related macular degeneration, left eye, stage unspecified; Z96.651 Presence of right artificial knee joint; Z95.5 Presence of coronary angioplasty implant and graft; Z85.3 Personal history of malignant neoplasm of breast
CPT/HCPCS: C1768; J1644; J2704; J3010

== ENCOUNTER → 2018-04-25 | Outpatient (CLI) | payer OTHER | LOC: BHFA 09:30 | PROVIDERS: ATTEND Internal Medicine Cardiovascular Disease | DX: I25.10 Atherosclerotic heart disease of native coronary artery without angina pectoris (principal); I48.0 Paroxysmal atrial fibrillation; I77.9 Disorder of arteries and arterioles, unspecified ==

== ENCOUNTER → 2018-07-19 | Outpatient (CLI) | payer OTHER | LOC: GIMAGING 09:39 → EDSTATUS 16:10 | PROVIDERS: ATTEND Registered Nurse | DX: S22.050A Wedge compression fracture of T5-T6 vertebra, initial encounter for closed fracture (principal); S22.040A Wedge compression fracture of fourth thoracic vertebra, initial encounter for closed fracture | CPT/HCPCS: 72070-PO ==

== ENCOUNTER → 2018-07-22 | Outpatient (CLI) | payer OTHER | LOC: BMCIMAGING 10:51 | PROVIDERS: ATTEND Internal Medicine | DX: J98.11 Atelectasis (principal); Z85.3 Personal history of malignant neoplasm of breast ==